=== PATIENT | female | born 1960 | race Hispanic/Latino ===

== ENCOUNTER 2017-05-02 14:19 | Outpatient (CLI) | payer MEDICARE ==
--- NOTE | 2017-05-02 16:31 | Mammography Report ---
BILATERAL DIGITAL SCREENING MAMMOGRAM with CAD: 05/02/17 14:19:00 CLINICAL: Routine screening. COMPARISON:09/29/15 FINDINGS: The breasts are almost entirely fatty.The left breast is smaller than the right but is unchanged compared to prior exams. No mass, architectural distortion or suspicious calcifications. IMPRESSION: No mammographic evidence of malignancy. BI-RADS CATEGORY: 2 -- Benign RECOMMENDATION: Routine mammographic screening in one year. COMMENT: Patient follow-up letters are generated by our [employer] application.
== END 2017-05-02 14:20 | disposition home or self-care (01) ==
LOC: SPVWC 14:19
PROVIDERS: ATTEND Internal Medicine
DX: Z12.31 Encounter for screening mammogram for malignant neoplasm of breast (principal); I11.0 Hypertensive heart disease with heart failure; I50.9 Heart failure, unspecified; I25.10 Atherosclerotic heart disease of native coronary artery without angina pectoris; E78.00 Pure hypercholesterolemia, unspecified; J44.9 Chronic obstructive pulmonary disease, unspecified; J45.909 Unspecified asthma, uncomplicated; E11.9 Type 2 diabetes mellitus without complications; F17.200 Nicotine dependence, unspecified, uncomplicated
CPT/HCPCS: 77067; G0202

== ENCOUNTER 2017-07-14 07:56 | Outpatient (CLI) | payer MEDICARE ==
[2017-07-14] MEDS ORDERED: NACL ONE (08:43)
--- NOTE | 2017-07-16 14:44 | Cat Scan Report ---
CT angiography of the abdomen and pelvis and bilateral CT runoff angiography. History: Peripheral vascular disease. Findings: The visualized upper abdominal viscera are unremarkable. There is recurrence of a midline ventral hernia containing fat. The small left renal cysts are insulin noted. No other incidental visceral abnormalities are seen. The abdominal aorta is normal in caliber. Atheromatous calcifications are seen in the distal abdominal aorta. The celiac axis, SMA, and renal arteries are unremarkable. An aortoiliac stent graft is identified and is patent. The distal common iliac and bifurcation are patent. The right external iliac artery is normal. There is mild dilatation of the right common femoral artery which measures 1.2 cm in diameter. There is a long segment endovascular stent in the right SFA which is patent throughout its length. The right popliteal artery is patent. The trifurcation is patent but there is occlusion of the left posterior tibial artery proximally. There is patency of the anterior tibial and peroneal arteries to the level of the ankle. The left common iliac bifurcation is patent with mild atheromatous changes in the left external iliac artery. There is a proximal left SFA endovascular stent which is completely occluded throughout its length. A second more distal SFA endovascular stent is also present with very minimal patency. There is reconstitution of the distal left SFA. There is high-grade stenosis of the distal SFA just above the knee. The popliteal artery is patent. There is patency of the trifurcation with 2 vessel runoff via the anterior and posterior tibial arteries. Impression: 1. Patent distal aorto iliac stent graft. 2. Mild dilatation of the right common femoral artery at 1.2 cm in diameter. There is patency of a long segment right SFA stent. Occlusion of the proximal left posterior tibial artery with two-vessel runoff via the anterior tibial and peroneal arteries. 3. Complete occlusion of the proximal left SFA endovascular stent. Minimal patency of a second left distal SFA stent. High-grade stenosis of the distal left SFA. 2 vessel runoff on the left is via the anterior and posterior tibial arteries
== END 2017-07-14 07:57 | disposition home or self-care (01) ==
LOC: CT 07:56
PROVIDERS: ATTEND Surgery Vascular Surgery
DX: I65.03 Occlusion and stenosis of bilateral vertebral arteries (principal); I70.223 Atherosclerosis of native arteries of extremities with rest pain, bilateral legs; I87.2 Venous insufficiency (chronic) (peripheral); I87.321 Chronic venous hypertension (idiopathic) with inflammation of right lower extremity; J43.9 Emphysema, unspecified; N94.89 Other specified conditions associated with female genital organs and menstrual cycle; K43.9 Ventral hernia without obstruction or gangrene; N28.1 Cyst of kidney, acquired; I70.0 Atherosclerosis of aorta; I72.4 Aneurysm of artery of lower extremity
CPT/HCPCS: 36415; 75635; 82565; 84520; Q9967

== ENCOUNTER 2019-08-02 13:45 | Outpatient (CLI) | payer MEDICARE ==
--- NOTE | 2019-08-02 16:21 | Mammography Report ---
DIGITAL SCREENING MAMMOGRAM WITH CAD, 08/02/2019 INDICATION: Routine screening mammography. TECHNIQUE: Digital bilateral 2D mammography was obtained in the craniocaudal and mediolateral obliq ue projections. This examination was interpreted with the benefit of Computer-Aided Detection analysi s. COMPARISON: 07/27/2018 FINDINGS: Breast Density: The breasts are almost entirely fatty. There is no evidence of dominant mass, suspicious calcifications or architectural distortion in eithe r breast. Stable right calcifications with benign morphology. IMPRESSION: No mammographic evidence of malignancy. Follow up recommendation: Routine yearly BI-RADS Category 2: Benign. A "normal" or negative report should not discourage follow up or biopsy of a clinically significant f inding. A written summary of these findings will be mailed to the patient. The patient will be entered into a mammography reporting system which will generate a reminder letter for the patient's next appointmen t at the appropriate interval. The [employer] recommends yearly mammograms starting at age 40 and continuing as l noa as a woman is in good health. Breast MRI is recommended for women with an approximate 20-25% or greater lifetime risk of breast cancer, including women with a strong family history of breast or ova dg cancer or who have been treated for Hodgkin's disease. Signer Name: Dimas Ferguson MD Signed: 08/02/2019 4:16 PM Workstation Name: [id number]
== END 2019-08-02 13:46 | disposition home or self-care (01) ==
LOC: SPVWC 13:45
PROVIDERS: ATTEND Internal Medicine
DX: Z12.31 Encounter for screening mammogram for malignant neoplasm of breast (principal)
CPT/HCPCS: 77067

== ENCOUNTER 2019-08-31 14:36 | Outpatient (CLI) | payer MEDICARE ==
--- NOTE | 2019-09-02 15:11 | Mammography Report ---
BONE DEXA CLINICAL: Postmenopausal. COMPARISON: The hip is compared with a 01/17/2016 exam. The spine is not compared because of discordan t measurement levels between the 2 exams. TECHNIQUE: 2 site bone DEXA performed on an Hologic scanner. FINDINGS: The average BMD of the lumbar spine L1-L4 is 1.365g/cm squared with a T score of +2.9 and a Z score o f +4.3. The average BMD of the right hip is 0.795 g/cm squared with a T score of -1.2and a Z score of -0.3. T his compares to 0.848 g/cm squared on the last exam and represents a -6.36 % change from the [previou s baseline]. IMPRESSION: 1. WHO classification: Normal with average fracture risk based on spine measurements. 2. WHO classification Osteopenia with increased fracture risk based on left hip measurements. 3. A significant decline in right hip BMD compared to the previous exam. RECOMMENDATION: Clinical correlation and routine screening. Definitions: BMD equal bone mineral density T score = BMD related to peak bone mass of young adult ([place] expressed an standard deviation) Z score = age-matched BMD expressed in [place] World health organization (WHO) diagnostic criteria Normal T score greater than equal to 1 standard deviation Osteopenia T score between -1 and -2.4 standard deviation Osteoporosis T score -2.5 standard deviation or below. Note: BMD is not the only risk factor for fracture; also consider factors such as the patient's age, risk of falling, previous osteoporotic fracture, family history of osteoporotic fractures, current sm oker and low body weight. Z scores are not calculated if greater than 80 years of age. Signer Name: Dimas Ferguson MD Signed: 09/02/2019 3:06 PM Workstation Name: [id number]
== END 2019-08-31 14:37 | disposition home or self-care (01) ==
LOC: SPVWC 14:36
PROVIDERS: ATTEND Internal Medicine
DX: M81.8 Other osteoporosis without current pathological fracture (principal)
CPT/HCPCS: 77080